=== PATIENT | male | born 1975 | race Caucasian/White ===

== ENCOUNTER 2018-04-22 11:23 | Inpatient (IN) | payer OTHER ==
[2018-04-22] MEDS ORDERED: Multivitamin (MVI) 10 ML, Thiamine 100 MG, Folic Acid 1 MG in Sodium Chloride 0.9% 1,00... IV ONE (12:09)
[2018-04-22 12:29] LABS: BASO % 0.9 % (0.0-2.0); EOS # 0.1 K/uL (0.0-0.7); EOS % 2.3 % (0.0-4.0); HEMOGLOBIN 15.4 g/dL (12.0-18.0); LYMPH # 0.9 K/uL (1.0-4.3); LYMPH % 17.4 % (20.0-40.0); MEAN CELL VOLUME 99.9 fL (80.0-94.0); MEAN CORPUSCULAR HEMOGLOBIN 35.3 pg (27.0-31.0); MEAN CORPUSCULAR HGB CONC 35.3 g/dL (33.0-37.0); MONO # 0.4 K/uL (0.0-0.8); MONO % 7.9 % (0.0-10.0); NEUT # 3.7 K/uL (1.8-7.0); NEUT % 71.5 % (50.0-75.0); NRBC % 0.2 % (0.0-2.0); RBC 4.38 Mil/uL (4.40-5.90); RED CELL DISTRIBUTION WIDTH 13.5 % (11.5-14.5); WHITE BLOOD COUNT 5.2 K/uL (4.8-10.8)
[2018-04-22 12:37] LABS: INR 1.1; PROTHROMBIN TIME 11.5 SECONDS (9.7-12.2)
[2018-04-22 12:43] LABS: ALB/GLOB RATIO 1.6 (1.0-2.1); ALBUMIN 4.5 g/dL (3.5-5.0); ALT/SGPT 147 U/L (21-72); AST/SGOT 180 U/L (17-59); BLOOD UREA NITROGEN 7 mg/dL (9-20); CALCIUM 9.4 mg/dl (8.6-10.4); GFR AFRICAN-AMERICAN > 60; GFR NON-AFRICAN AMERICAN > 60; LIPASE 348 U/L (23-300)
[2018-04-22 12:57] LABS: B-TYPE NATRIURETIC PEPTIDE 14.9 pg/mL (0-450)
[2018-04-22 12:58] LABS: SQUAMOUS EPITHIAL < 1 /hpf (0-5); URINE BILIRUBIN NEGATIVE (NEGATIVE); URINE BLOOD NEGATIVE (NEGATIVE); URINE CLARITY Clear (Clear); URINE COLOR Yellow (YELLOW); URINE GLUCOSE (UA) NORMAL (Normal); URINE LEUKOCYTE ESTERASE NEG Leu/uL (Negative); URINE PROTEIN NEGATIVE (NEGATIVE); URINE UROBILINOGEN NORMAL mg/dL (0.2-1.0)
[2018-04-22 13:31] LABS: BARBITURATES, UR NEGATIVE (NEGATIVE); BENZODIAZEPINES, UR NEGATIVE (NEGATIVE); OPIATES, UR NEGATIVE (NEGATIVE); PHENCYCLIDINE, UR NEGATIVE (NEGATIVE)
--- NOTE | 2018-04-22 13:39 | CT ---
PROCEDURE: CT HEAD WITHOUT CONTRAST. HISTORY: Focal weakness. COMPARISON: None available. TECHNIQUE: Axial computed tomography images were obtained through the head/brain without intravenous contrast. Radiation dose: Total exam DLP = 833.38 mGy-cm. This CT exam was performed using one or more of the following dose reduction techniques: Automated exposure control, adjustment of the mA and/or kV according to patient size, and/or use of iterative reconstruction technique. FINDINGS: HEMORRHAGE: No acute parenchymal, subarachnoid nor extra-axial hemorrhage. BRAIN: No evidence of large acute infarct. Note that the possibility of a small hyperacute infarct cannot be completely excluded. VENTRICLES: No obstructive hydrocephalus. CALVARIUM: Unremarkable. PARANASAL SINUSES: Unremarkable as visualized. No significant inflammatory changes. MASTOID AIR CELLS: Slightly underpneumatized and sclerotic right mastoid air complex. OTHER FINDINGS: None. IMPRESSION: No acute intracranial hemorrhage.
--- NOTE | 2018-04-22 13:52 | RAD ---
Chest x-ray two views History: Chest pain. Comparison: None available. Findings: No focal infiltrate or effusion. Right hilar prominence. Heart size within normal limits. Impression: No focal infiltrate or effusion.
--- NOTE | 2018-04-22 14:04 | C.PDOC ---
History Of Present Illness 42 year old male, whose PMHx includes alcohol abuse, is sent to the ED from clinic for evaluation of weakness, left-sided arm weakness and decreased sensation which gradually developed over the past 8 days. Patient admits he has been drinking heavily on a daily basis. Pt went to Clinic early today for evaluation, was sent to ED for further evaluation, CT head. Otherwise, pt denies recent trauma or injury, fever, chills, severe headache, dizziness, visual change, chest pain, shortness of breath, dyspnea, palpitation, nausea, vomiting, abd. pain, diarrhea, Ambulatory in ED with stable gait, not in any apparent distress. Last alcohol drink was last night. Time Seen by Provider: 04/22/18 12:06 Chief Complaint (Nursing): Weakness/Neurological Deficit History Per: Patient History/Exam Limitations: no limitations Onset/Duration Of Symptoms: Days (8), Gradual Current Symptoms Are (Timing): Still Present Fall Associated With With Symptoms: No Additional History Per: Patient Past Medical History Reviewed: Historical Data, Nursing Documentation, Vital Signs Vital Signs: Last Vital Signs Temp 98.5 F 04/22/18 11:25 Pulse 61 04/22/18 15:07 Resp 19 04/22/18 15:07 BP 154/118 H 04/22/18 15:07 Pulse Ox 98 04/22/18 15:16 - Medical History PMH: No Chronic Diseases Surgical History: No Surg Hx Family History: States: Unknown Family Hx - Social History Hx Alcohol Use: Yes Hx Substance Use: No Review Of Systems Constitutional: Negative for: Fever, Chills Eyes: Negative for: Vision Change Cardiovascular: Negative for: Chest Pain Respiratory: Negative for: Shortness of Breath Gastrointestinal: Negative for: Nausea, Vomiting Neurological: Positive for: Weakness (left-sided arm ), Other (decreased sensation to left arm ). Negative for: Headache, Dizziness Physical Exam - Physical Exam Appears: Well, Non-toxic, No Acute Distress Skin: Normal Color, Warm, Dry, No Rash Head: Normacephalic Eye(s): bilateral: PERRL, EOMI Nose: No Flaring, No Discharge Oral Mucosa: Moist, No Drooling, Other (alcohol on breath ) Tongue: No Bite Throat: No Erythema, No Drooling Neck: Trachea Midline, Supple Chest: Symmetrical, No Deformity, No Tenderness Cardiovascular: Rhythm Regular, No Murmur Respiratory: No Decreased Breath Sounds, No Accessory Muscle Use, No Rales, No Rhonchi, No Stridor, No Wheezing Gastrointestinal/Abdominal: Soft, No Tenderness, No Distention, No Guarding Back: No CVA Tenderness Extremity: Normal ROM, No Tenderness, No Pedal Edema, Capillary Refill (less than 2 seconds ) Neurological/Psych: Oriented x3, Normal Speech, Normal Cognition, Normal Motor, Normal Sensation, Normal Reflexes Gait: Steady ED Course And Treatment - Laboratory Results Result Diagrams: 04/22/18 12:20 04/22/18 12:20 Lab Interpretation: Abnormal ECG: Interpreted By Me, Viewed By Me Interpretation Of ECG: SR@64/min, NAD, no acute T wave or ST-T changes. O2 Sat by Pulse Oximetry: 98 (on RA) Pulse Ox Interpretation: Normal - Other Rad CXR X-Ray: Interpreted by Me, Viewed By Me, Read By Radiologist Interpretation: Chest x-ray two views. History: Chest pain. Comparison: None available. Findings: No focal infiltrate or effusion. Right hilar prominence. Heart size within normal limits. Impression: No focal infiltrate or effusion. - CT Scan/US CT Head Other Rad Studies (CT/US): Interpreted By Me, Read By Radiologist, Radiology Report Reviewed CT/US Interpretation: PROCEDURE: CT HEAD WITHOUT CONTRAST. HISTORY: Focal weakness. COMPARISON: None available. TECHNIQUE: Axial computed tomography images were obtained through the head/brain without intravenous contrast. Radiation dose: Total exam DLP = 833.38 mGy-cm. This CT exam was performed using one or more of the following dose reduction techniques: Automated exposure control, adjustment of the mA and/or kV according to patient size, and/ or use of iterative reconstruction technique. FINDINGS: HEMORRHAGE: No acute parenchymal, subarachnoid nor extra-axial hemorrhage. BRAIN: No evidence of large acute infarct. Note that the possibility of a small hyperacute infarct cannot be completely excluded. VENTRICLES: No obstructive hydrocephalus. CALVARIUM: Unremarkable. PARANASAL SINUSES: Unremarkable as visualized. No significant inflammatory changes. MASTOID AIR CELLS: Slightly underpneumatized and sclerotic right mastoid air complex. OTHER FINDINGS: None. IMPRESSION: No acute intracranial hemorrhage. CT abd/pelvis Other Rad Studies (CT/US): Radiology Report Reviewed CT/US Interpretation: 04/22/2018 14:43:16. My Comment : . PROCEDURE: CT Abdomen and Pelvis with contrast. HISTORY: epigastric pain, alcoholic. COMPARISON: None. TECHNIQUE: Contrast dose: 100 mL Visipaque 320. Radiation dose: Total exam DLP = 771.27 mGy-cm. This CT exam was performed using one or more of the following dose reduction techniques: Automated exposure control, adjustment of the mA and/or kV according to patient size, and/or use of iterative reconstruction technique. FINDINGS: LOWER THORAX: Unremarkable. LIVER: Hepatomegaly. The liver measures 22.1 cm craniocaudal. Diffusely diminished attenuation consistent with fatty infiltration. Smooth contour. No mass. No biliary ductal dilatation. GALLBLADDER AND BILE DUCTS: Unremarkable. PANCREAS: Unremarkable. No gross lesion or ductal dilatation. SPLEEN: Unremarkable. ADRENALS: Unremarkable. No mass. KIDNEYS AND URETERS: Unremarkable. No hydronephrosis. No solid mass. VASCULATURE: Unremarkable. No aortic aneurysm. BOWEL: Unremarkable. No obstruction. No gross mural thickening. APPENDIX: Normal appendix. PERITONEUM: Unremarkable. No free fluid. No free air. LYMPH NODES: Unremarkable. No enlarged lymph nodes. BLADDER: Unremarkable. REPRODUCTIVE: Normal prostate. BONES: No acute fracture. OTHER FINDINGS: None. IMPRESSION: Hepatomegaly with fatty infiltration of the liver. Otherwise unremarkable examination. Progress Note: Bloodwork, urinalysis, CXR, CT Head, CT A/P, EKG ordered and reviewed. IV Fluids given. Pt remained unchanged during the ED evaluation. Blood work review , abnormal. CT of head and abd/pelvis review- no acute abnormalities. Pt has clinical findings c/w Left sided weakness, non-acute, alcohol abuse r/o withdrawal. Case discussed with Hospitalist and admission arranged to tele. Disposition - Disposition Disposition: HOSPITALIZED Disposition Time: 15:16 Condition: STABLE Forms: [employer] (Welsh) - Clinical Impression Clinical Impression: Left-sided weakness, CVA (cerebral vascular accident), Alcohol withdrawal - PA / SMT OPERATOR / Resident Statement /DO has reviewed & agrees with the documentation as recorded. - Scribe Statement The provider has reviewed the documentation as recorded by the Scribe (Corina Quiroz) All medical record entries made by the Scribe were at my direction and personally dictated by me. I have reviewed the chart and agree that the record accurately reflects my personal performance of the history, physical exam, medical decision making, and the department course for this patient. I have also personally directed, reviewed, and agree with the discharge instructions and disposition.
[2018-04-22 14:12] LABS: AMYLASE 118 U/L (30-110)
[2018-04-22] MEDS ORDERED: Iodixanol 320 MG/ML 100 ML BOTTLE IV ONE (14:20)
--- NOTE | 2018-04-22 15:29 | CT ---
PROCEDURE: CT Abdomen and Pelvis with contrast HISTORY: epigastric pain, alcoholic COMPARISON: None. TECHNIQUE: Contrast dose: 100 mL Visipaque 320 Radiation dose: Total exam DLP = 771.27 mGy-cm. This CT exam was performed using one or more of the following dose reduction techniques: Automated exposure control, adjustment of the mA and/or kV according to patient size, and/or use of iterative reconstruction technique. FINDINGS: LOWER THORAX: Unremarkable. LIVER: Hepatomegaly. The liver measures 22.1 cm craniocaudal. Diffusely diminished attenuation consistent with fatty infiltration. Smooth contour. No mass. No biliary ductal dilatation. GALLBLADDER AND BILE DUCTS: Unremarkable. PANCREAS: Unremarkable. No gross lesion or ductal dilatation. SPLEEN: Unremarkable. ADRENALS: Unremarkable. No mass. KIDNEYS AND URETERS: Unremarkable. No hydronephrosis. No solid mass. VASCULATURE: Unremarkable. No aortic aneurysm. BOWEL: Unremarkable. No obstruction. No gross mural thickening. APPENDIX: Normal appendix. PERITONEUM: Unremarkable. No free fluid. No free air. LYMPH NODES: Unremarkable. No enlarged lymph nodes. BLADDER: Unremarkable. REPRODUCTIVE: Normal prostate BONES: No acute fracture. OTHER FINDINGS: None. IMPRESSION: Hepatomegaly with fatty infiltration of the liver. Otherwise unremarkable examination.
--- NOTE | 2018-04-22 16:16 | CP.PCM.HP ---
History of Present Illness - History of Present Illness History of Present Illness: Patient seen and evaluated in ED Hallway 2 at approximately 16:45PM. CC: weakness HPI: 42 year old male with no significant past medical history presents with complaints of bilateral arm weakness. Patient presented at the [facility] to establish care today. He states that he has been having arm weakness for the past 8 days. Patient denies trauma at this time. He states that the symptoms just started. Patient admits to increased alcohol intake over the course of the past 6 months. He has been drinking 1/2 bottle of tequila daily for this time period. He also admits to increased beer intake over the weekend. He admits to weakness and paresthesias. He denies chest pain, headaches, tremors, palpitations, nausea, vomiting, diarrhea at this time. PMHx-Denies PSHx- Denies Fam Hx- Mother and Father both have DM Meds- denies Social- admits to smoking 1 ppd for one year several years ago (has since quit) ; admits to drinking 1/2 a bottle of tequila for the past 6 months as well as a 12 pack of 12 oz beers on the weekend; denies drug use Allergies- NKDA Present on Admission - Present on Admission Any Indicators Present on Admission: No Review of Systems - Review of Systems Systems not reviewed;Unavailable: Language Barrier - Constitutional Constitutional: absent: Night Sweats, Snoring - EENT Nose/Mouth/Throat: absent: Nasal Congestion, Nasal Discharge - Cardiovascular Cardiovascular: absent: Chest Pain, Chest Pain at Rest, Dyspnea - Respiratory Respiratory: absent: Dyspnea on Exertion, Chest Congestion - Gastrointestinal Gastrointestinal: absent: Nausea, Vomiting - Musculoskeletal Musculoskeletal: Numbness (arms and hands). absent: Stiffness - Integumentary Integumentary: absent: Skin Pain, Swelling - Neurological Neurological: Weakness - Psychiatric Psychiatric: absent: Anxiety Past Patient History - Past Social History Smoking Status: Never Smoked Alcohol: > 2 Drinks/Day Drugs: Denies - PSYCHIATRIC Hx Substance Use: No - SURGICAL HISTORY Hx Surgeries: No Meds Allergies/Adverse Reactions: Allergies Allergy/AdvReac Type Severity Reaction Status Date / Time No Known Allergies Allergy Verified 04/22/18 11:28 Physical Exam - Constitutional Appears: Non-toxic, No Acute Distress - Head Exam Head Exam: ATRAUMATIC, NORMAL INSPECTION, NORMOCEPHALIC - Eye Exam Eye Exam: EOMI, Normal appearance, PERRL Pupil Exam: NORMAL ACCOMODATION - ENT Exam ENT Exam: Mucous Membranes Moist - Neck Exam Neck exam: Positive for: Full Rom - Respiratory Exam Respiratory Exam: NORMAL BREATHING PATTERN. absent: Wheezes - Cardiovascular Exam Cardiovascular Exam: +S1, +S2 - GI/Abdominal Exam GI & Abdominal Exam: Normal Bowel Sounds, Soft. absent: Distended, Guarding - Extremities Exam Extremities exam: Positive for: full ROM, normal capillary refill, pedal pulses present. Negative for: pedal edema - Back Exam Back exam: FULL ROM - Neurological Exam Neurological exam: Alert, Oriented x3 - Expanded Neurological Exam Expanded Patient oriented to: person, place, time Cranial nerves: EOM's Intact: Normal, Nystagmus: Normal, Tongue Deviation: Normal Cerebellar Function: Finger to Nose: Normal, Heel to [place]: Normal, [place]: Normal Upper motor neuron: Pronator Drift: Normal Sensory exam: Lower Extremity 2 Point Discrimination: Normal, Upper Extremity 2 Point Discrimination: Abnormal Left Neuro motor strength exam: Left Upper Extremity: 5, Right Upper Extremity: 5, Left Lower Extremity: 5, Right Lower Extremity: 5 Coma Scale Motor Response: OBEYS COMMANDS - Psychiatric Exam Psychiatric exam: Normal Affect, Normal Mood - Skin Skin Exam: Dry, Normal Color, Warm Results - Vital Signs Recent Vital Signs: Last Vital Signs Temp 98.7 F 04/22/18 16:01 Pulse 60 04/22/18 16:01 Resp 18 04/22/18 16:01 BP 143/86 04/22/18 16:01 Pulse Ox 98 04/22/18 16:04 - Labs Result Diagrams: 04/22/18 12:20 04/22/18 12:20 Labs: Laboratory Results - last 24 hr 04/22/18 04/22/18 04/22/18 11:31 12:20 12:20 WBC 5.2 RBC 4.38 L Hgb 15.4 Hct 43.7 MCV 99.9 H MCH 35.3 H MCHC 35.3 RDW 13.5 Plt Count 216 MPV 8.0 Neut % (Auto) 71.5 Lymph % (Auto) 17.4 L [place] % (Auto) 7.9 Eos % (Auto) 2.3 Baso % (Auto) 0.9 Neut # (Auto) 3.7 Lymph # (Auto) 0.9 L [place] # (Auto) 0.4 Eos # (Auto) 0.1 Baso # (Auto) 0.0 PT 11.5 INR 1.1 APTT 32 Sodium Potassium Chloride Carbon Dioxide Anion Gap BUN Creatinine Est GFR ( Amer) Est GFR (Non-Af Amer) POC Glucose (mg/dL) 133 H Random Glucose Calcium Total Bilirubin AST ALT Alkaline Phosphatase Troponin I NT-Pro-B Natriuret Pep Total Protein Albumin Globulin Albumin/Globulin Ratio Amylase Lipase Urine Color Urine Clarity Urine pH Ur Specific [place] Urine Protein Urine Glucose (UA) Urine Ketones Urine Blood Urine Nitrate Urine Bilirubin Urine Urobilinogen Ur Leukocyte Esterase Urine WBC (Auto) Urine RBC (Auto) Ur Squamous Epith Cells Urine Opiates Screen Urine Methadone Screen Ur Barbiturates Screen Ur Phencyclidine Scrn Ur Amphetamines Screen U Benzodiazepines Scrn U Oth Cocaine Metabols U Cannabinoids Screen Alcohol, Quantitative 04/22/18 04/22/18 04/22/18 12:20 12:42 12:42 WBC RBC Hgb Hct MCV MCH MCHC RDW Plt Count MPV Neut % (Auto) Lymph % (Auto) [place] % (Auto) Eos % (Auto) Baso % (Auto) Neut # (Auto) Lymph # (Auto) [place] # (Auto) Eos # (Auto) Baso # (Auto) PT INR APTT Sodium 145 Potassium 3.6 Chloride 104 Carbon Dioxide 26 Anion Gap 19 BUN 7 L Creatinine 0.7 L Est GFR ( Amer) > 60 Est GFR (Non-Af Amer) > 60 POC Glucose (mg/dL) Random Glucose 142 H Calcium 9.4 Total Bilirubin 0.6 AST 180 H ALT 147 H Alkaline Phosphatase 83 Troponin I < 0.0120 NT-Pro-B Natriuret Pep 14.9 Total Protein 7.4 Albumin 4.5 Globulin 2.9 Albumin/Globulin Ratio 1.6 Amylase 118 H Lipase 348 H Urine Color Yellow Urine Clarity Clear Urine pH 6.0 Ur Specific [place] 1.021 Urine Protein Negative Urine Glucose (UA) Normal Urine Ketones Negative Urine Blood Negative Urine Nitrate Negative Urine Bilirubin Negative Urine Urobilinogen Normal Ur Leukocyte Esterase Neg Urine WBC (Auto) < 1 Urine RBC (Auto) < 1 Ur Squamous Epith Cells < 1 Urine Opiates Screen Negative Urine Methadone Screen Negative Ur Barbiturates Screen Negative Ur Phencyclidine Scrn Negative Ur Amphetamines Screen Negative U Benzodiazepines Scrn Negative U Oth Cocaine Metabols Positive H U Cannabinoids Screen Negative Alcohol, Quantitative 32 H Assessment & Plan (1) Left-sided weakness Assessment and Plan: Bilateral upper extremity paresthesias (left more pronounced than right) Head CT negative F/U Brain MRI as well as Cervical CT EKG- NSR F/U TSH, AM labs, CBC, B12 and Folate levels Status: Acute (2) Alcohol withdrawal Assessment and Plan: CIWA protocol PRN (Current assessment COWS 1) Ativan 1 mg IV Q4 PRN Ativan 1 mg PO taper Given a banana bag in the ED Continue Thiamine and Folic acid F/U AM labs Status: Chronic (3) Substance use disorder Assessment and Plan: UDS positive for cocaine (Patient continues to deny use; though states that his friends use) Status: Acute (4) Prophylactic measure Assessment and Plan: Protonix 40 mg PO daily Lovenox 40 mg SC Status: Acute NIHSS Stroke Scale - Date/Time Evaluation Performed Date Performed: 04/22/18 Time Performed: 16:00 When Was NIHSS Performed: Baseline - How Severe is the Stoke Level of Consciousness: 0=Alert LOC to Questions: 0=Both comments correct LOC to commands: 0=Obeys both correctly Best Gaze: 0=Normal Visual: 0=No visual loss Facial: 0=Normal Motor Arm - Left: 1=Drift noted before 10 sec Motor Arm - Right: 0=No drift Motor Leg - Left: 0=No drift Motor Leg - Right: 0=No drift Limb Ataxia: 0=Absent Sensory: 1=Mild to moderate loss Best Language: 0=No aphasia Dysarthia: 0=Normal articulation Extinction & Inattention (Neglect): 0=Normal, no object Score: 2 Severity Of Stroke: 0= No Stroke
[2018-04-22] MEDS ORDERED: Sodium Chloride 0.9% 1,000 ML ONE (18:17)
[2018-04-22] MEDS: Sodium Chloride 0.9% 1,000 ML IV SCH (18:19)
[2018-04-22 21:42] VITALS: RESP 20
[2018-04-23] MEDS: Sodium Chloride 0.9% 1,000 ML IV SCH ×3 (03:45→20:32)
[2018-04-23 07:29] LABS: BASO % 0.7 % (0.0-2.0); EOS # 0.2 K/uL (0.0-0.7); HEMOGLOBIN 15.2 g/dL (12.0-18.0); LYMPH # 0.9 K/uL (1.0-4.3); LYMPH % 18.5 % (20.0-40.0); MEAN CELL VOLUME 98.6 fL (80.0-94.0); MEAN CORPUSCULAR HEMOGLOBIN 34.8 pg (27.0-31.0); MEAN CORPUSCULAR HGB CONC 35.3 g/dL (33.0-37.0); MEAN PLATELET VOLUME 8.2 fL (7.2-11.7); MONO # 0.4 K/uL (0.0-0.8); MONO % 8.8 % (0.0-10.0); NEUT # 3.4 K/uL (1.8-7.0); NRBC % 0.1 % (0.0-2.0); RBC 4.36 Mil/uL (4.40-5.90); RED CELL DISTRIBUTION WIDTH 12.8 % (11.5-14.5)
[2018-04-23 08:12] LABS: ALB/GLOB RATIO 1.4 (1.0-2.1); ALBUMIN 3.8 g/dL (3.5-5.0); ALT/SGPT 111 U/L (21-72); AST/SGOT 124 U/L (17-59); BLOOD UREA NITROGEN 9 mg/dL (9-20); CALCIUM 8.2 mg/dl (8.6-10.4); GFR AFRICAN-AMERICAN > 60; GFR NON-AFRICAN AMERICAN > 60
[2018-04-23] MEDS: Pantoprazole 40 mg EC Tab PO SCH (09:25)
[2018-04-23] MEDS: Multiple Vitamins Tab PO SCH (09:25)
[2018-04-23] MEDS: Enoxaparin 40 mg Syringe SC SCH (09:26)
[2018-04-23 09:28] LABS: FOLATE 9.4 ng/mL
--- NOTE | 2018-04-23 12:11 | MRI ---
PROCEDURE: MRI BRAIN WITHOUT CONTRAST HISTORY: bilateral arm weakness COMPARISON: None. TECHNIQUE: Multiplanar, multisequence MR images of the brain were obtained without intravenous contrast enhancement. FINDINGS: HEMORRHAGE: None DWI: No evidence of an acute or early subacute infarction. BRAIN PARENCHYMA: No mass effect or edema. No atrophy or chronic microvascular ischemic changes. VENTRICLES: Unremarkable. No hydrocephalus. CRANIUM: Unremarkable. ORBITS: Grossly unremarkable. PARANASAL SINUSES/MASTOIDS: Clear VASCULAR SYSTEM: Skull base flow voids intact. OTHER FINDINGS: None. IMPRESSION: Unremarkable non contrast enhanced MRI of the brain.
--- NOTE | 2018-04-23 12:13 | CP.PCM.PN ---
Addendum entered and electronically signed by Joseph Chandler 04/23/18 17:57: Addition to A/P: * Elevated liver enzymes ---> Down trending * Alcohol abuse---> Folate and Vitamin B12 WNL Original Note: <Jessica Jansen V - Last Filed: 04/23/18 14:03> Objective - Vital Signs/Intake and Output Vital Signs (last 24 hours): Temp Pulse Resp BP Pulse Ox 98.4 F 73 20 157/99 H 98 04/23/18 12:43 04/23/18 12:43 04/23/18 12:43 04/23/18 12:43 04/23/18 12:43 Intake and Output: 04/23/18 04/23/18 06:59 18:59 Intake Total 1000 Balance 1000 - Medications Medications: Current Medications Enoxaparin Sodium (Lovenox) 40 mg SC DAILY [facility] Last Admin: 04/23/18 09:26 Dose: 40 mg Folic Acid (Folic Acid) 1 mg PO DAILY [facility] Last Admin: 04/23/18 09:25 Dose: 1 mg Sodium Chloride (Sodium Chloride 0.9%) 1,000 mls @ 100 mls/hr IV .Q10H [facility] Last Admin: 04/23/18 06:28 Dose: 100 mls/hr Lorazepam (Ativan) 1 mg PO Q6 [facility] PRN Reason: Taper Stop: 04/26/18 23:59 Last Admin: 04/23/18 12:45 Dose: 1 mg Lorazepam (Ativan) 1 mg IVP Q4 PRN PRN Reason: Symptoms of alcohol withdrawl Multivitamins (Hexavitamin) 1 tab PO DAILY [facility] Last Admin: 04/23/18 09:25 Dose: 1 tab Pantoprazole Sodium (Protonix Ec Tab) 40 mg PO DAILY [facility] Last Admin: 04/23/18 09:25 Dose: 40 mg Thiamine HCl (Vitamin B1 Tab) 100 mg PO DAILY [facility] Last Admin: 04/23/18 09:26 Dose: 100 mg - Labs Labs: 04/23/18 07:17 04/23/18 07:17 PT 11.5 SECONDS (9.7-12.2) 04/22/18 12:20 INR 1.1 04/22/18 12:20 APTT 32 SECONDS (21-34) 04/22/18 12:20 Attending/Attestation - Attestation I have personally seen and examined this patient.: Yes I have fully participated in the care of the patient.: Yes I have reviewed all pertinent clinical information, including history, physical exam and plan: Yes Notes (Text): Patient seen, examined, and case discussed with day-time resident. Patient seen this morning. Patient reports he is feeling ok. He reports he drinks tequila every day at least 1-2 small bottles for the past couple of months. He denies any family. He reports he drinks like that because "he is tired". Patient works as a cook, cooking hamburgers, and does do overhead lifting. Patient denies any recent falls nor trauma in regards to his extremity weakness over the left upper and lower extremities. He reports this happened 8 days ago this weakness in the left upper and lower extremities, and reports he went to hospital in [place]. I have check in the EMR I dont seen a visit to [place] to verify this. We have also found cocaine in his urine. Patient denies use of cocaine when I revealed to him. Patient denies cocaine; but reports his friends do snort cocaine. We will consult neurology and psychiatry on the case. Patient is ordered for brain mri and cervical CT scan. (1) Left-sided weakness Assessment and Plan: * Patient on my exam does have decreased sensation over the left upper extremity (deltoid, arm, and forearm) when compared to the right upper extremity as well as strength over the left upper extremity. He reports he has had these symptoms since 8 days ago. he can move his left upper extremity against gravity but it is noticeably more weaker than his right upper extremity * Head CT (04/22/18) negative * Brain MRI (04/23/18): unremarkable * CT Cervical (04/22/18): no acute findings; recommended for MRI * Order for MRI of cervical spine * Neurology (Dr. Morgan) on consult-->we will follow-up for recommendations * TSH: 5.44 * Folate: 9.4 * Vitamin B12 Status: Acute (2) Alcohol withdrawal Suspected Depression Assessment and Plan: * Psychiatry (Dr. Kraft) on consult-->help appreciated * [facility] protocol PRN (Current assessment COWS 1) * Ativan 1 mg IV Q4 PRN * Ativan 1 mg PO taper * Given a banana bag in the ED * Thiamine 100mg PO daily * MVI 1 tab PO daily * Folic acid 1mg PO daily Status: Chronic (3) Substance use disorder Assessment and Plan: * UDS positive for cocaine * Patient continues to deny use; though states that his friends use Status: Acute (4) Prophylactic measure Assessment and Plan: * Protonix 40 mg PO daily * Lovenox 40 mg SC * NS 100cc/hr Status: Acute <RameshCourtney lagunaelieser Aguilar - Last Filed: 04/23/18 17:56> Subjective - Date & Time of Evaluation Date of Evaluation: 04/23/18 Time of Evaluation: 09:00 - Subjective Subjective: Medicine progress note ( Dr. Jansen's service) Patient was seen and examined at bedside as he was resting comfortably in bed. Patient still admits to left sided weakness and decrease in sensation. Patient denies chest pain, SOB, palpitations, dizziness, neck pain, headache, blurry vision. During the encounter, when asked to walk, patient seems to be unsteady. Objective - Vital Signs/Intake and Output Vital Signs (last 24 hours): Temp Pulse Resp BP Pulse Ox 98.3 F 64 20 158/94 H 100 04/23/18 07:30 04/23/18 07:30 04/23/18 07:30 04/23/18 07:30 04/23/18 07:30 Intake and Output: 04/23/18 04/23/18 06:59 18:59 Intake Total 1000 Balance 1000 - Medications Medications: Current Medications Enoxaparin Sodium (Lovenox) 40 mg SC DAILY [facility] Last Admin: 04/23/18 09:26 Dose: 40 mg Folic Acid (Folic Acid) 1 mg PO DAILY [facility] Last Admin: 04/23/18 09:25 Dose: 1 mg Sodium Chloride (Sodium Chloride 0.9%) 1,000 mls @ 100 mls/hr IV .Q10H [facility] Last Admin: 04/23/18 06:28 Dose: 100 mls/hr Lorazepam (Ativan) 1 mg PO Q6 [facility] PRN Reason: Taper Stop: 04/26/18 23:59 Last Admin: 04/23/18 06:26 Dose: 1 mg Lorazepam (Ativan) 1 mg IVP Q4 PRN PRN Reason: Symptoms of alcohol withdrawl Multivitamins (Hexavitamin) 1 tab PO DAILY [facility] Last Admin: 04/23/18 09:25 Dose: 1 tab Pantoprazole Sodium (Protonix Ec Tab) 40 mg PO DAILY [facility] Last Admin: 04/23/18 09:25 Dose: 40 mg Thiamine HCl (Vitamin B1 Tab) 100 mg PO DAILY [facility] Last Admin: 04/23/18 09:26 Dose: 100 mg - Labs Labs: 04/23/18 07:17 04/23/18 07:17 PT 11.5 SECONDS (9.7-12.2) 04/22/18 12:20 INR 1.1 04/22/18 12:20 APTT 32 SECONDS (21-34) 04/22/18 12:20 - Constitutional Appears: No Acute Distress - Head Exam Head Exam: ATRAUMATIC - Eye Exam Eye Exam: EOMI, Normal appearance - ENT Exam ENT Exam: Mucous Membranes Moist - Respiratory Exam Respiratory Exam: Clear to Ausculation Bilateral, NORMAL BREATHING PATTERN. absent: Rales, Rhonchi, Wheezes - Cardiovascular Exam Cardiovascular Exam: REGULAR RHYTHM, +S1, +S2. absent: Murmur - Extremities Exam Extremities Exam: Normal Inspection. absent: Calf Tenderness, Pedal Edema - Neurological Exam Neurological Exam: Alert, Awake, Oriented x3 Neuro motor strength exam: Left Upper Extremity: 3 (Decrease sensation ), Right Upper Extremity: 4, Left Lower Extremity: 3, Right Lower Extremity: 4 (Decrease sensation ) - Psychiatric Exam Psychiatric exam: Normal Mood - Skin Skin Exam: Normal Color Assessment and Plan (1) Left-sided weakness Assessment & Plan: Neurology Consult, Dr. Mrogan---> Help appreciated * Management as per recommendation * recommendation for checking B12, folate, B6, thiamine levels, heavy metal screen. * Nerve conduction studies and EMG may be performed as an outpatient in 2 weeks. Imaging: Head CT (04/22/18): No acute intracranial hemorrhage. Brain MRI (04/23/18): Unremarkable non contrast enhanced MRI of the brain. Cervical spine CT (04/23/18): No acute findings related to/accounting for the clinical presentation. If cervical myelopathy or other pathologic process is suspected MRI is advised, the recommended procedure of choice in individual who presents with nontraumatic bilateral arm weakness Cervical MRI (04/23/18): Small disc protrusions are identified at C3-4 and C4-5 without stenosis resulting. No central canal stenosis. No neural foraminal stenosis Lumbar spine CT (04/23/18): There is a small central and right parasagittal focal disc bulge L4-L5 level on which minimally indents the ventral surface of the thecal sac. No evidence of canal nor foraminal compromise at any level. Management: * PT/OT Status: Acute (2) Alcohol withdrawal Assessment & Plan: [facility] protocol PRN (Current assessment COWS 1) Ativan 1 mg IV Q4 PRN Ativan 1 mg PO taper Banana given on admission Folic 1mg PO daily Thiamine 100mg PO daily Multivitamins 1 tab PO daily NS @ 100mls/hr Status: Chronic (3) Substance use disorder Assessment & Plan: UDS on admission: Cocaine (+) Alcohol Abuse 2/2 Depression Psychiatry Consult, Dr. Kraft ---> help appreciated * Evaluation for depression * Management as per recommendation Status: Acute (4) Prophylactic measure Assessment & Plan: GI: Protonix 40 mg PO daily DVT: Lovenox 40 mg SC All plans and management discussed with Dr. Jansen Status: Acute
--- NOTE | 2018-04-23 13:16 | PCM.PSYCH ---
Initial Psychiatric Evaluation - Initial Psychiatric Evaluation Type of Admission: Voluntary Legal Status: Capacity Chief Complaint (in patient's own words): I was drinking heavily.' Current Medications: Active Medications Generic Name Dose Route Start Last Admin Trade Name Carl PRN Reason Stop Dose Admin Enoxaparin Sodium 40 mg 04/23/18 10:00 04/23/18 09:26 Lovenox SC 40 mg DAILY [facility] Administration Folic Acid 1 mg 04/23/18 10:00 04/23/18 09:25 Folic Acid PO 1 mg DAILY [facility] Administration Sodium Chloride 1,000 mls @ 100 mls/hr 04/22/18 17:45 04/23/18 06:28 Sodium Chloride 0.9% IV 100 mls/hr .Q10H [facility] Administration Lorazepam 1 mg 04/23/18 00:00 04/23/18 12:45 Ativan PO 04/26/18 23:59 1 mg Q6 [facility] Administration Taper Lorazepam 1 mg 04/22/18 18:40 Ativan IVP Q4 PRN Symptoms of alcohol withdrawl Multivitamins 1 tab 04/23/18 10:00 04/23/18 09:25 Hexavitamin PO 1 tab DAILY [facility] Administration Pantoprazole Sodium 40 mg 04/23/18 10:00 04/23/18 09:25 Protonix Ec Tab PO 40 mg DAILY [facility] Administration Thiamine HCl 100 mg 04/23/18 10:00 04/23/18 09:26 Vitamin B1 Tab PO 100 mg DAILY [facility] Administration Past Psychiatric History - Past Psychiatric History Previous Treatment History: None Pertinent Medical Hx (Current Medical&Sleep Prob, Allergies): Allergies Allergy/AdvReac Type Severity Reaction Status Date / Time No Known Allergies Allergy Verified 04/22/18 11:28 No Known Home Med 04/22/18 Review of Systems - Review of Systems All systems: reviewed and no additional remarkable complaints except - Psychiatric Psychiatric: Anxiety, Irritability. absent: Suicidal Ideation Mental Status Examination - Personal Presentation Personal Presentation: Looks stated age - Affect Affect: Constricted - Motor Activity Motor Activity: Calm - Reliability in Providing Information Reliability in Providing Information: Fair - Speech Speech: Organized - Mood Mood: Anxious - Formal Thought Process Formal Thought Process: No Impairment - Obsessions/Compulsions Obsessions: No Compulsions: No - Cognitive Functions Orientation: Person, Place, Situation, Time Sensorium: Alert Attention/Concentration: Attentive Abstract Thinking: [place] Estimate of Intelligence: Below average Judgement: Imparied, as evidence by: Poor judgement, Imparied, as evidence by: Lack of insight into illness - Risk Risk: Withdrawal, Diminished functioning - Strength & Assets Inventory Strength & Assets Inventory: Cooperative - Limitations Limitations: Living alone DSM 5 DX - DSM 5 DSM 5 Diagnosis: Alcohol use disorder severe Alcohol withdrawal uncomplicated - Recommended/Plan of Treatment Treatment Recommendations and Plan of Treatment: Alcohol use disorder severe CBT Psychoeducation Supportive therapy, individual therapy Use HI for abstinence Alcohol withdrawal uncomplicated CBT Psychoeducation Supportive therapy, individual therapy Ativan when necessary Ativan taper Folic acid/thiamine/multivitamin
--- NOTE | 2018-04-23 13:25 | CT ---
PROCEDURE: CT Cervical Spine without contrast HISTORY: bilateral arm weakness COMPARISON: None available. TECHNIQUE: Axial computed tomography images were obtained of the cervical spine without the use of intravenous contrast. Coronal and sagittal reformatted images were created and reviewed. Radiation dose: Total exam DLP = 523.50 mGy-cm. This CT exam was performed using one or more of the following dose reduction techniques: Automated exposure control, adjustment of the mA and/or kV according to patient size, and/or use of iterative reconstruction technique. FINDINGS: VERTEBRAE: No fracture. Normal alignment. No destructive bony lesion. DISCS/SPINAL CANAL/NEURAL FORAMINA: No significant central canal or neural foraminal stenosis. Discs heights are grossly preserved. PARASPINAL SOFT TISSUES: Unremarkable. OTHER FINDINGS: None. IMPRESSION: No acute findings related to/accounting for the clinical presentation. If cervical myelopathy or other pathologic process is suspected MRI is advised, the recommended procedure of choice in individual who presents with nontraumatic bilateral arm weakness
--- NOTE | 2018-04-23 14:54 | CT ---
PROCEDURE: CT scan lumbar spine dated 04/23/2018. HISTORY: Bilateral leg weakness ( Left> Right) COMPARISON: None. TECHNIQUE: Axial computed tomography images were obtained of the lumbar spine without the use of intravenous contrast. Coronal and sagittal reformatted images were created and reviewed. Radiation dose: Total exam DLP = 1101.67 mGy-cm. This CT exam was performed using one or more of the following dose reduction techniques: Automated exposure control, adjustment of the mA and/or kV according to patient size, and/or use of iterative reconstruction technique. FINDINGS: VERTEBRAE: No acute compression fractures no retropulsed fragments. Vertebral bodies exhibit normal stature. Vertebral bodies and facets normally aligned. DISCS/SPINAL CANAL/NEURAL FORAMINA: L1-2: Unremarkable. L2-3: Unremarkable. L3-4: Unremarkable. L4-5: Disc space height maintained. Small central and right parasagittal focal disc bulge indents the ventral surface of the thecal sac though does not cause significant canal stenosis. Central canal and exit foramina also appear adequate. Facets are slightly overgrown. . L5-S1: Disc space height maintained. No disc herniation or significant disc bulge. There does appear to be anomalous appearance of the posterior elements at the L5 level. Minimal central and bilateral disc bulge is present however the overall central canal appears adequate. The exit foramina are also adequate. PARASPINAL SOFT TISSUES: Unremarkable. OTHER FINDINGS: None. IMPRESSION: There is a small central and right parasagittal focal disc bulge L4-L5 level on which minimally indents the ventral surface of the thecal sac. No evidence of canal nor foraminal compromise at any level.
--- NOTE | 2018-04-23 15:32 | MRI ---
PROCEDURE: MR CERVICAL SPINE WITHOUT CONTRAST HISTORY: left upper extremity weakness, myelopathy COMPARISON: None available. TECHNIQUE: Multiecho multiplanar sequences were performed through the cervical spine without the use of intravenous contrast. FINDINGS: Normal lordotic curvature. Craniocervical junction unremarkable. Vertebral body heights preserved. No marrow signal abnormality. Diffuse disc desiccation is appreciated throughout the intervertebral discs. Normal cervical cord. No paraspinal abnormality. C2-C3: No disc herniation, spinal canal stenosis or neural foraminal narrowing. C3-C4: Small disc protrusion but without spinal canal stenosis or neural foraminal narrowing. C4-C5: Small disc protrusion but without spinal canal stenosis or neural foraminal narrowing. C5-C6: No disc herniation, spinal canal stenosis or neural foraminal narrowing. C6-C7: No disc herniation, spinal canal stenosis or neural foraminal narrowing. C7-T1: No disc herniation, spinal canal stenosis or neural foraminal narrowing. OTHER FINDINGS: None. IMPRESSION: Small disc protrusions are identified at C3-4 and C4-5 without stenosis resulting. No central canal stenosis. No neural foraminal stenosis.
--- NOTE | 2018-04-23 16:10 | CP.PCM.CON ---
History of Present Illness - History of Present Illness History of Present Illness: Neurology Consultation Note: Mr. Alexander Frankel is a 42-year-old man with a past medical history of recently increased alcohol abuse with daily drinking of about 1/2 a liter of Tequila and beer. He complains of bilateral upper extremity weakness that has progressed over the last week. MRI of the brain and neck have been relatively unremarkable. Labs showed cocaine metabolites in urine and elevated LFTs, as well as elevated lipase and amylase levels. When I saw the patient, he did not complain of weakness, but did complain of left arm numbness and weakness. He said that his right arm was improving. Review of Systems - Review of Systems All systems: reviewed and no additional remarkable complaints except Past Patient History - Past Social History Smoking Status: Former Smoker - MUSCULOSKELETAL/RHEUMATOLOGICAL Hx Falls: No - PSYCHIATRIC Hx Substance Use: Yes (UDS + cocaine) - SURGICAL HISTORY Hx Surgeries: No - ANESTHESIA Hx Anesthesia: No Meds Allergies/Adverse Reactions: Allergies Allergy/AdvReac Type Severity Reaction Status Date / Time No Known Allergies Allergy Verified 04/22/18 11:28 - Medications Medications: Current Medications Enoxaparin Sodium (Lovenox) 40 mg SC DAILY [facility] Last Admin: 04/23/18 09:26 Dose: 40 mg Folic Acid (Folic Acid) 1 mg PO DAILY [facility] Last Admin: 04/23/18 09:25 Dose: 1 mg Sodium Chloride (Sodium Chloride 0.9%) 1,000 mls @ 100 mls/hr IV .Q10H [facility] Last Admin: 04/23/18 06:28 Dose: 100 mls/hr Lorazepam (Ativan) 1 mg PO Q6 [facility] PRN Reason: Taper Stop: 04/26/18 23:59 Last Admin: 04/23/18 12:45 Dose: 1 mg Lorazepam (Ativan) 1 mg IVP Q4 PRN PRN Reason: Symptoms of alcohol withdrawl Multivitamins (Hexavitamin) 1 tab PO DAILY [facility] Last Admin: 04/23/18 09:25 Dose: 1 tab Pantoprazole Sodium (Protonix Ec Tab) 40 mg PO DAILY [facility] Last Admin: 04/23/18 09:25 Dose: 40 mg Thiamine HCl (Vitamin B1 Tab) 100 mg PO DAILY [facility] Last Admin: 04/23/18 09:26 Dose: 100 mg Physical Exam - Neurological Exam Neurological exam: Alert, CN II-XII Intact, Normal Gait, Oriented x3, Reflexes Normal Additional comments: AAOX3, CN 2-12 intact, speech is fluent, no dysarthria is noted, memory and attention are intact. Right upper extremity strength is 5/5 proximally and 4/5 distally with pain on dorsiflexion of wrist and point tenderness in the anterior wrist region. Left upper extremity is 4/5 proximally and distally with decreased sensation over the forearm. Bilateral lower extremities are full in strength. Reflexes are normal. Plantar responses are downgoing. Gait was wide based and slightly ataxic. Results - Vital Signs Recent Vital Signs: Last Vital Signs Temp 98.4 F 04/23/18 12:43 Pulse 73 04/23/18 12:43 Resp 20 04/23/18 12:43 BP 157/99 H 04/23/18 12:43 Pulse Ox 98 04/23/18 12:43 - Labs Result Diagrams: 04/23/18 07:17 04/23/18 07:17 Labs: Laboratory Results - last 24 hr 04/23/18 04/23/18 04/23/18 07:17 07:17 07:17 WBC 5.0 RBC 4.36 L Hgb 15.2 Hct 43.0 MCV 98.6 H MCH 34.8 H MCHC 35.3 RDW 12.8 Plt Count 220 MPV 8.2 Neut % (Auto) 68.0 Lymph % (Auto) 18.5 L [place] % (Auto) 8.8 Eos % (Auto) 4.0 Baso % (Auto) 0.7 Neut # (Auto) 3.4 Lymph # (Auto) 0.9 L [place] # (Auto) 0.4 Eos # (Auto) 0.2 Baso # (Auto) 0.0 Sodium 137 Potassium 4.1 Chloride 103 Carbon Dioxide 27 Anion Gap 11 BUN 9 Creatinine 0.8 Est GFR ( Amer) > 60 Est GFR (Non-Af Amer) > 60 Random Glucose 113 H Hemoglobin A1c 5.4 Calcium 8.2 L Phosphorus 3.4 Magnesium 1.9 Total Bilirubin 0.9 AST 124 H D ALT 111 H D Alkaline Phosphatase 81 Total Protein 6.4 Albumin 3.8 Globulin 2.7 Albumin/Globulin Ratio 1.4 Vitamin B12 395 Folate 9.4 TSH 3rd Generation 5.44 H Assessment & Plan (1) Left upper extremity numbness Assessment and Plan: MRI of the brain and cervical spine appear normal. The symptoms may be caused by a peripheral neuropathy due to compression or toxicity (alcohol abuse). I recommend checking B12, folate, B6, thiamine levels, heavy metal screen. Nerve conduction studies and EMG may be performed as an outpatient in 2 weeks. Thank you. Status: Acute (2) Left arm weakness Assessment and Plan: Does not appear to be of central origin since the MRI of the brain and cervical spine are normal. Continue metabolic and psychiatric work-up. Status: Acute Priority: High
--- NOTE | 2018-04-23 17:36 | CP.PCM.PN ---
Subjective - Date & Time of Evaluation Date of Evaluation: 04/23/18 Time of Evaluation: 09:00 - Subjective Subjective: Medicine progress note ( Dr. Jansen's service) Patient was seen and examined at bedside as he was resting comfortably in bed. Patient still admits to left sided weakness and decrease in sensation. Patient denies chest pain, SOB, palpitations, dizziness, neck pain, headache, blurry vision. During the encounter, when asked to walk, patient seems to be unsteady. Objective - Vital Signs/Intake and Output Vital Signs (last 24 hours): Temp Pulse Resp BP Pulse Ox 98.3 F 57 L 20 144/89 98 04/23/18 15:06 04/23/18 15:06 04/23/18 15:06 04/23/18 15:06 04/23/18 15:06 Intake and Output: 04/23/18 04/23/18 06:59 18:59 Intake Total 1000 1100 Balance 1000 1100 - Medications Medications: Current Medications Enoxaparin Sodium (Lovenox) 40 mg SC DAILY [facility] Last Admin: 04/23/18 09:26 Dose: 40 mg Folic Acid (Folic Acid) 1 mg PO DAILY [facility] Last Admin: 04/23/18 09:25 Dose: 1 mg Sodium Chloride (Sodium Chloride 0.9%) 1,000 mls @ 100 mls/hr IV .Q10H [facility] Last Admin: 04/23/18 06:28 Dose: 100 mls/hr Lorazepam (Ativan) 1 mg PO Q6 [facility] PRN Reason: Taper Stop: 04/26/18 23:59 Last Admin: 04/23/18 12:45 Dose: 1 mg Lorazepam (Ativan) 1 mg IVP Q4 PRN PRN Reason: Symptoms of alcohol withdrawl Multivitamins (Hexavitamin) 1 tab PO DAILY [facility] Last Admin: 04/23/18 09:25 Dose: 1 tab Pantoprazole Sodium (Protonix Ec Tab) 40 mg PO DAILY [facility] Last Admin: 04/23/18 09:25 Dose: 40 mg Thiamine HCl (Vitamin B1 Tab) 100 mg PO DAILY [facility] Last Admin: 04/23/18 09:26 Dose: 100 mg - Labs Labs: 04/23/18 07:17 04/23/18 07:17 PT 11.5 SECONDS (9.7-12.2) 04/22/18 12:20 INR 1.1 04/22/18 12:20 APTT 32 SECONDS (21-34) 04/22/18 12:20 - Constitutional Appears: No Acute Distress - Head Exam Head Exam: ATRAUMATIC - Eye Exam Eye Exam: EOMI - ENT Exam ENT Exam: Mucous Membranes Moist - Respiratory Exam Respiratory Exam: Clear to Ausculation Bilateral, NORMAL BREATHING PATTERN. absent: Prolonged Expiratory Phase, Rhonchi, Wheezes, Respiratory Distress, Stridor - Cardiovascular Exam Cardiovascular Exam: REGULAR RHYTHM, +S1, +S2. absent: Murmur - GI/Abdominal Exam GI & Abdominal Exam: Soft, Normal Bowel Sounds. absent: Distended, Firm, Guarding, Rigid, Tenderness - Extremities Exam Extremities Exam: Calf Tenderness, Pedal Edema - Neurological Exam Neurological Exam: Alert, Awake, CN II-XII Intact, Oriented x3 Neuro motor strength exam: Left Upper Extremity: 3 (Decrease sensation ), Right Upper Extremity: 4, Left Lower Extremity: 3, Right Lower Extremity: 4 - Psychiatric Exam Psychiatric exam: Normal Affect - Skin Skin Exam: Normal Color Assessment and Plan (1) Left-sided weakness Assessment & Plan: Neurology Consult, Dr. Morgan---> Help appreciated * Management as per recommendation * recommendation for checking B12, folate, B6, thiamine levels, heavy metal screen. * Nerve conduction studies and EMG may be performed as an outpatient in 2 weeks. Imaging: Head CT (04/22/18): No acute intracranial hemorrhage. Brain MRI (04/23/18): Unremarkable non contrast enhanced MRI of the brain. Cervical spine CT (04/23/18): No acute findings related to/accounting for the clinical presentation. If cervical myelopathy or other pathologic process is suspected MRI is advised, the recommended procedure of choice in individual who presents with nontraumatic bilateral arm weakness Cervical MRI (04/23/18): Small disc protrusions are identified at C3-4 and C4-5 without stenosis resulting. No central canal stenosis. No neural foraminal stenosis Lumbar spine CT (04/23/18): There is a small central and right parasagittal focal disc bulge L4-L5 level on which minimally indents the ventral surface of the thecal sac. No evidence of canal nor foraminal compromise at any level. Management: * PT/OT Status: Acute
--- NOTE | 2018-04-23 19:29 | CARD ---
APPROVED REPORT EKG Measurement Heart [id number] <Conclusion> Normal sinus rhythm Normal ECG
[2018-04-24] MEDS: Sodium Chloride 0.9% 1,000 ML IV SCH ×2 (06:15→10:21)
--- NOTE | 2018-04-24 07:23 | CP.PCM.PN ---
Subjective - Date & Time of Evaluation Date of Evaluation: 04/24/18 Time of Evaluation: 07:20 - Subjective Subjective: Mr. Alexander Frankel was seen and examined at the bedside. He is alert, oriented.He denies any headache, dizziness, lightheadedness, but claims of tingling and numbness of the right upper extremities with mild weakness. He did complain of left upper extremity weakness yesterday today it is his right side. He is able to move bilateral upper and lower extremities spontaneously. Spoke to him regarding possible EMG/ FULL TIME STAFF INTERPRETER with Dr. Carlyn Marin if numbness or weakness persist after 2 weeks from discharge.He verbalizes understanding.There was no untoward events overnight. Objective - Vital Signs/Intake and Output Vital Signs (last 24 hours): Temp Pulse Resp BP Pulse Ox 97.1 F L 53 L 20 149/94 H 98 04/24/18 04:00 04/24/18 04:00 04/24/18 04:00 04/24/18 04:00 04/24/18 04:00 Intake and Output: 04/24/18 04/24/18 06:59 18:59 Intake Total 1850 Balance 1850 - Medications Medications: Current Medications Enoxaparin Sodium (Lovenox) 40 mg SC DAILY [facility] Last Admin: 04/23/18 09:26 Dose: 40 mg Folic Acid (Folic Acid) 1 mg PO DAILY [facility] Last Admin: 04/23/18 09:25 Dose: 1 mg Sodium Chloride (Sodium Chloride 0.9%) 1,000 mls @ 100 mls/hr IV .Q10H [facility] Last Admin: 04/24/18 06:15 Dose: 100 mls/hr Lorazepam (Ativan) 1 mg PO Q8 [facility] PRN Reason: Taper Stop: 04/26/18 23:59 Last Admin: 04/24/18 06:15 Dose: 1 mg Lorazepam (Ativan) 1 mg IVP Q4 PRN PRN Reason: Symptoms of alcohol withdrawl Multivitamins (Hexavitamin) 1 tab PO DAILY [facility] Last Admin: 04/23/18 09:25 Dose: 1 tab Pantoprazole Sodium (Protonix Ec Tab) 40 mg PO DAILY [facility] Last Admin: 04/23/18 09:25 Dose: 40 mg Thiamine HCl (Vitamin B1 Tab) 100 mg PO DAILY [facility] Last Admin: 04/23/18 09:26 Dose: 100 mg - Labs Labs: 04/23/18 07:17 04/23/18 07:17 PT 11.5 SECONDS (9.7-12.2) 04/22/18 12:20 INR 1.1 04/22/18 12:20 APTT 32 SECONDS (21-34) 04/22/18 12:20 - Constitutional Appears: No Acute Distress - Head Exam Head Exam: NORMAL INSPECTION - Eye Exam Pupil Exam: PERRL - Neurological Exam Neurological Exam: Alert, Awake, Oriented x3 Neuro motor strength exam: Left Upper Extremity: 4, Right Upper Extremity: 4, Left Lower Extremity: 4, Right Lower Extremity: 4 Additional comments: alert, oriented with mild weakness of the upper extremities, sensation is decreased in the upper extremities. Assessment and Plan (1) Upper limb weakness Assessment & Plan: Case discussed with Dr. Morgan, continue all current medical regimen. Recommend endocrine consult due to elevated TSH which can be done as an outpatient, EMG/ FULL TIME STAFF INTERPRETER with Dr. Carlyn Marin if numbness or weakness persist after 2 weeks from discharge.Neurology is signing off from this case. Status: Acute
[2018-04-24 07:56] VITALS: BP 132/81; TEMP 98.1; O2SAT 100
[2018-04-24 09:16] LABS: BASO % 0.8 % (0.0-2.0); EOS # 0.1 K/uL (0.0-0.7); EOS % 2.7 % (0.0-4.0); HEMOGLOBIN 15.2 g/dL (12.0-18.0); LYMPH # 0.8 K/uL (1.0-4.3); LYMPH % 18.6 % (20.0-40.0); MEAN CELL VOLUME 98.2 fL (80.0-94.0); MEAN CORPUSCULAR HEMOGLOBIN 34.9 pg (27.0-31.0); MEAN CORPUSCULAR HGB CONC 35.5 g/dL (33.0-37.0); MEAN PLATELET VOLUME 8.5 fL (7.2-11.7); MONO # 0.3 K/uL (0.0-0.8); MONO % 6.5 % (0.0-10.0); NEUT # 3.1 K/uL (1.8-7.0); NEUT % 71.4 % (50.0-75.0); RBC 4.36 Mil/uL (4.40-5.90); RED CELL DISTRIBUTION WIDTH 12.9 % (11.5-14.5); WHITE BLOOD COUNT 4.4 K/uL (4.8-10.8)
[2018-04-24 09:30] LABS: ALB/GLOB RATIO 1.5 (1.0-2.1); ALT/SGPT 106 U/L (21-72); AST/SGOT 120 U/L (17-59); BLOOD UREA NITROGEN 11 mg/dL (9-20); CALCIUM 8.6 mg/dl (8.6-10.4); GFR AFRICAN-AMERICAN > 60; GFR NON-AFRICAN AMERICAN > 60; HDL CHOLESTEROL 48 mg/dL (30-70)
[2018-04-24 09:40] LABS: LDL CHOLESTEROL 123 mg/dL (0-129)
[2018-04-24] MEDS: Multiple Vitamins Tab PO SCH (09:49)
[2018-04-24] MEDS: Pantoprazole 40 mg EC Tab PO SCH (09:49)
[2018-04-24] MEDS: Enoxaparin 40 mg Syringe SC SCH (09:49)
[2018-04-24 10:22] VITALS: PULSE 66
--- NOTE | 2018-04-24 10:56 | CP.PCM.DIS ---
Provider - Provider Date of Admission: 04/22/18 15:10 Attending physician: Jeremiah Mason DO Time Spent in preparation of Discharge (in minutes): 45 Diagnosis - Discharge Diagnosis (1) Left-sided weakness Status: Acute (2) Alcohol withdrawal Status: Chronic (3) Substance use disorder Status: Acute (4) Prophylactic measure Status: Acute Hospital Course - Lab Results Lab Results: Most Recent Lab Values WBC 4.4 K/uL (4.8-10.8) L 04/24/18 09:04 RBC 4.36 Mil/uL (4.40-5.90) L 04/24/18 09:04 Hgb 15.2 g/dL (12.0-18.0) 04/24/18 09:04 Hct 42.8 % (35.0-51.0) 04/24/18 09:04 MCV 98.2 fL (80.0-94.0) H 04/24/18 09:04 MCH 34.9 pg (27.0-31.0) H 04/24/18 09:04 MCHC 35.5 g/dL (33.0-37.0) 04/24/18 09:04 RDW 12.9 % (11.5-14.5) 04/24/18 09:04 Plt Count 238 K/uL (130-400) 04/24/18 09:04 MPV 8.5 fL (7.2-11.7) 04/24/18 09:04 Neut % (Auto) 71.4 % (50.0-75.0) 04/24/18 09:04 Lymph % (Auto) 18.6 % (20.0-40.0) L 04/24/18 09:04 [place] % (Auto) 6.5 % (0.0-10.0) 04/24/18 09:04 Eos % (Auto) 2.7 % (0.0-4.0) 04/24/18 09:04 Baso % (Auto) 0.8 % (0.0-2.0) 04/24/18 09:04 Neut # (Auto) 3.1 K/uL (1.8-7.0) 04/24/18 09:04 Lymph # (Auto) 0.8 K/uL (1.0-4.3) L 04/24/18 09:04 [place] # (Auto) 0.3 K/uL (0.0-0.8) 04/24/18 09:04 Eos # (Auto) 0.1 K/uL (0.0-0.7) 04/24/18 09:04 Baso # (Auto) 0.0 K/uL (0.0-0.2) 04/24/18 09:04 PT 11.5 SECONDS (9.7-12.2) 04/22/18 12:20 INR 1.1 04/22/18 12:20 APTT 32 SECONDS (21-34) 04/22/18 12:20 Sodium 139 mmol/L (132-148) 04/24/18 09:04 Potassium 4.2 mmol/L (3.6-5.2) 04/24/18 09:04 Chloride 103 mmol/L (98-107) 04/24/18 09:04 Carbon Dioxide 26 mmol/L (22-30) 04/24/18 09:04 Anion Gap 13 (10-20) 04/24/18 09:04 BUN 11 mg/dL (9-20) 04/24/18 09:04 Creatinine 0.8 mg/dL (0.8-1.5) 04/24/18 09:04 Est GFR ( Amer) > 60 04/24/18 09:04 Est GFR (Non-Af Amer) > 60 04/24/18 09:04 POC Glucose (mg/dL) 133 mg/dL (65-110) H 04/22/18 11:31 Random Glucose 102 mg/dL (75-110) 04/24/18 09:04 Hemoglobin A1c 5.4 % (4.2-6.5) 04/23/18 07:17 Calcium 8.6 mg/dl (8.6-10.4) 04/24/18 09:04 Phosphorus 3.4 mg/dL (2.5-4.5) 04/23/18 07:17 Magnesium 1.9 mg/dL (1.6-2.3) 04/24/18 09:04 Total Bilirubin 0.9 mg/dL (0.2-1.3) 04/24/18 09:04 AST 120 U/L (17-59) H 04/24/18 09:04 ALT 106 U/L (21-72) H 04/24/18 09:04 Alkaline Phosphatase 73 U/L (38-126) 04/24/18 09:04 Troponin I < 0.0120 ng/mL (0.00-0.120) 04/22/18 12:20 NT-Pro-B Natriuret Pep 14.9 pg/mL (0-450) 04/22/18 12:20 Total Protein 6.7 g/dL (6.3-8.3) 04/24/18 09:04 Albumin 4.0 g/dL (3.5-5.0) 04/24/18 09:04 Globulin 2.7 gm/dL (2.2-3.9) 04/24/18 09:04 Albumin/Globulin Ratio 1.5 (1.0-2.1) 04/24/18 09:04 Triglycerides 131 mg/dL (0-149) 04/24/18 09:04 Cholesterol 177 mg/dL (0-199) 04/24/18 09:04 LDL Cholesterol Direct 123 mg/dL (0-129) 04/24/18 09:04 HDL Cholesterol 48 mg/dL (30-70) 04/24/18 09:04 Amylase 118 U/L (30-110) H 04/22/18 12:20 Lipase 348 U/L (23-300) H 04/22/18 12:20 Vitamin B12 395 pg/mL (239-931) 04/23/18 07:17 Folate 9.4 ng/mL 04/23/18 07:17 Free T4 0.78 ng/dL (0.78-2.19) 04/24/18 09:04 TSH 3rd Generation 5.42 mIU/L (0.46-4.68) H 04/24/18 09:04 Urine Color Yellow (YELLOW) 04/22/18 12:42 Urine Clarity Clear (Clear) 04/22/18 12:42 Urine pH 6.0 (5.0-8.0) 04/22/18 12:42 Ur Specific Hallie 1.021 (1.003-1.030) 04/22/18 12:42 Urine Protein Negative mg/dL (NEGATIVE) 04/22/18 12:42 Urine Glucose (UA) Normal mg/dL (Normal) 04/22/18 12:42 Urine Ketones Negative mg/dL (NEGATIVE) 04/22/18 12:42 Urine Blood Negative (NEGATIVE) 04/22/18 12:42 Urine Nitrate Negative (NEGATIVE) 04/22/18 12:42 Urine Bilirubin Negative (NEGATIVE) 04/22/18 12:42 Urine Urobilinogen Normal mg/dL (0.2-1.0) 04/22/18 12:42 Ur Leukocyte Esterase Neg Gail/uL (Negative) 04/22/18 12:42 Urine WBC (Auto) < 1 /hpf (0-5) 04/22/18 12:42 Urine RBC (Auto) < 1 /hpf (0-3) 04/22/18 12:42 Ur Squamous Epith Cells < 1 /hpf (0-5) 04/22/18 12:42 Urine Opiates Screen Negative (NEGATIVE) 04/22/18 12:42 Urine Methadone Screen Negative (NEGATIVE) 04/22/18 12:42 Ur Barbiturates Screen Negative (NEGATIVE) 04/22/18 12:42 Ur Phencyclidine Scrn Negative (NEGATIVE) 04/22/18 12:42 Ur Amphetamines Screen Negative (NEGATIVE) 04/22/18 12:42 U Benzodiazepines Scrn Negative (NEGATIVE) 04/22/18 12:42 U Oth Cocaine Metabols Positive (NEGATIVE) H 04/22/18 12:42 U Cannabinoids Screen Negative (NEGATIVE) 04/22/18 12:42 Alcohol, Quantitative 32 mg/dl (0-10) H 04/22/18 12:20 - Hospital Course Hospital Course: HPI (As per admission): 42 year old male with no significant past medical history presents with complaints of bilateral arm weakness. Patient presented at the [facility] to establish care today. He states that he has been having arm weakness for the past 8 days. Patient denies trauma at this time. He states that the symptoms just started. Patient admits to increased alcohol intake over the course of the past 6 months. He has been drinking 1/2 bottle of tequila daily for this time period. He also admits to increased beer intake over the weekend. He admits to weakness and paresthesias. He denies chest pain, headaches, tremors, palpitations, nausea, vomiting, diarrhea at this time. Hospital Course: Patient was admitted with the diagnosis of left-sided weakness and substance abuse withdrawal. Neurology, Dr. Morgan was consulted, who recommended outpatient , EMG/ PHARMACY INFORMATICIST with Dr. Carlyn Marin if numbness or weakness persist after 2 weeks from discharge based upon negative diagnostic imaging. Possible CVA was ruled out based on negative imaging. Patient remained stable over the course of admission. Over the course of admission, patient worked with occupational therapy, stating that strong performance in ADL/functional mobility, requiring supervision at times for OOB mobility as a safety precaution, but does not present with any significant functional deficits. In addition, psychiatrist, Dr. Kraft was consulted for evaluation of substance abuse and possible depression. Patient was discharge upon clearance by medical team and was discharge with appropriate discharge instruction. Pertinent imaging/Labs: Head CT (04/22/18): No acute intracranial hemorrhage. Brain MRI (04/23/18): Unremarkable non contrast enhanced MRI of the brain. Cervical spine CT (04/23/18): No acute findings related to/accounting for the clinical presentation. If cervical myelopathy or other pathologic process is suspected MRI is advised, the recommended procedure of choice in individual who presents with nontraumatic bilateral arm weakness Cervical MRI (04/23/18): Small disc protrusions are identified at C3-4 and C4-5 without stenosis resulting. No central canal stenosis. No neural foraminal stenosis Lumbar spine CT (04/23/18): There is a small central and right parasagittal focal disc bulge L4-L5 level on which minimally indents the ventral surface of the thecal sac. No evidence of canal nor foraminal compromise at any level. Folate and Vitamin B12 WNL This is a brief summary of events. For a complete course, please refer to the medical records. Discharge Exam - Head Exam Head Exam: NORMAL INSPECTION - Eye Exam Eye Exam: EOMI, Normal appearance - ENT Exam ENT Exam: Mucous Membranes Moist - Respiratory Exam Respiratory Exam: Clear to PA & Lateral, NORMAL BREATHING PATTERN - GI/Abdominal Exam GI & Abdominal Exam: Normal Bowel Sounds, Soft. absent: Diminished Bowel Sounds , Distended, Tenderness - Extremities Exam Extremities exam: normal inspection - Neurological Exam Neurological exam: Alert, CN II-XII Intact, Oriented x3 Additional comments: Left upper and lower extremities: +3-4/5 Strength with mild decrease sensation Right upper and lower extremities: +5/5 Strength - Skin Skin Exam: Normal Color Discharge Plan - Follow Up Plan Condition: STABLE Disposition: HOME/ ROUTINE Instructions: Heart Healthy Diet, Drug Abuse and Drug Addiction (DC), Generalized Weakness (DC), Alcohol Withdrawal (DC), Alcohol Abuse and Alcoholism (DC), Effects of Alcohol on Your Health Additional Instructions: Please discharge patient home Please follow up with Dr. Abran Marin for outpatient EMG/ PHARMACY INFORMATICIST if numbness or weakness persist after [address] Abran Marin is located in [place] at [address] [place] [address], 3[address] floor, [place] , [address] Please follow up with [facility], in order to establish primary care within a week of discharge Please decrease the amount of alcohol intake per day as it is affecting your health. You will be given information about substance abuse and getting outpatient assistance in your [place] language, green[place]. Please return to the hospital if symptoms resume Please take care Referrals: [facility] [Provider Group] Abran Marin MD [Staff Provider] -
== END 2018-04-24 14:09 | disposition home or self-care (01) | DRG 247 ==
LOC: C.ER 11:23 → C.9E 15:10 → C.6T 20:55
PROVIDERS: ADMIT Hospitalist; ATTEND Hospitalist
DX: R29.898 Other symptoms and signs involving the musculoskeletal system (principal); F10.239 Alcohol dependence with withdrawal, unspecified; F14.90 Cocaine use, unspecified, uncomplicated; R20.0 Anesthesia of skin; K70.0 Alcoholic fatty liver; Z87.891 Personal history of nicotine dependence